=== PATIENT | female | born 1990 | race African-American/Black ===

== ENCOUNTER 2020-06-15 15:34 | Emergency (ER) | payer SELFPAY ==
[~2020-06-15] VITALS: Ht 162.6 cm; Wt 96.0 kg
[2020-06-15] MEDS ORDERED: GENTAK0.32 OD (16:30)
[2020-06-15 16:40] VITALS: BP 145/81
== END 2020-06-15 16:40 | disposition home or self-care (01) | DRG 125 ==
LOC: ED 15:34
DX: H10.11 Acute atopic conjunctivitis, right eye (principal); F17.290 Nicotine dependence, other tobacco product, uncomplicated

== ENCOUNTER 2020-07-29 | Emergency (ER) | payer SELFPAY ==
[~2020-07-29] MED LIST: GENTAK0.32 OD
[2020-07-29] MEDS ORDERED: KEFLEX500 M1 PO (09:06)
[2020-07-29 09:13] LABS: URINE BILIRUBIN - DIPSTICK NEGATIVE (NEGATIVE); URINE BLOOD DIPSTICK LARGE (NEGATIVE); URINE COLOR YELLOW; URINE GLUCOSE - DIPSTICK NEGATIVE (NEGATIVE); URINE KETONE NEGATIVE (NEGATIVE); URINE LEUK ESTERASE NEGATIVE (NEGATIVE); URINE NITRITE - DIPSTICK NEGATIVE (Negative); URINE PH 6.5 (4.5-8.0); URINE PROTEIN - DIPSTICK 30 mg/dL (NEG-TRACE); URINE SPECIFIC GRAVITY 1.025; URINE UROBILINOGEN - DIPSTICK 0.2 E.U./dL (0.2)
[2020-07-29 09:20] LABS: URINE BACTERIA FEW hpf
[2020-07-29 09:21] LABS: URINE SQUAMOUS EPITHELIAL CELL MANY EPI/hpf (0-FEW)
== END 2020-07-29 10:20 | disposition home or self-care (01) | DRG 153 ==
PROVIDERS: Emergency Medicine
DX: J06.9 Acute upper respiratory infection, unspecified (principal); Z20.822 Contact with and (suspected) exposure to COVID-19

== ENCOUNTER 2021-05-08 19:39 | Emergency (ER) | payer SELFPAY ==
[~2021-05-08] VITALS: Ht 162.6 cm; Wt 96.0 kg
[~2021-05-08 19:39] MED LIST changes: +KEFLEX500 M1 PO
== END 2021-05-08 22:10 | disposition home or self-care (01) | DRG 605 ==
LOC: ED 19:39
DX: S00.83XA Contusion of other part of head, initial encounter (principal); S63.617A Unspecified sprain of left little finger, initial encounter; F17.200 Nicotine dependence, unspecified, uncomplicated; Y00.XXXA Assault by blunt object, initial encounter

== ENCOUNTER 2021-05-16 15:15 | Emergency (ER) | payer SELFPAY ==
[~2021-05-16] VITALS: Ht 162.6 cm; Wt 95.0 kg
[2021-05-16] MEDS ORDERED: OFLOXACIN0.3 % OD (16:44)
[2021-05-16 16:55] VITALS: BP 151/96
== END 2021-05-16 17:05 | disposition home or self-care (01) | DRG 125 ==
LOC: ED 15:15
DX: S05.01XA Injury of conjunctiva and corneal abrasion without foreign body, right eye, initial encounter (principal); X99.0XXA Assault by sharp glass, initial encounter